=== PATIENT | male | born 1970 | race Caucasian/White ===

== ENCOUNTER 2020-12-16 12:23 | Emergency (ER) | payer MEDICAID, OTHER, SELFPAY ==
--- NOTE | ~2020-12-16 | XR_ITS ---
EXAMINATION: XR CHEST CLINICAL INFORMATION: Pneumonia COMPARISON: 05/05/2007 TECHNIQUE: Frontal view of the chest was obtained. FINDINGS: Focal opacity at the left midlung measures 0.9 cm, overlapping with posterior right eighth rib and anterior third rib. Heart size is normal. No acute osseous abnormality. XR/XR chest 1V IMPRESSION: There is a 0.9 cm opacity within the left midlung, possibly representing summation artifact but nonspecific and an underlying pulmonary nodule/mass cannot be excluded. When clinically appropriate, consider follow-up with chest CT for further assessment.
[2020-12-16 12:30] VITALS: BP 135/76; PULSE 94; RESP 18; TEMP 36.8; O2SAT 98; BMI 28.6
--- NOTE | 2020-12-16 13:17 | ED_ITS ---
HPI - URI/Sore Throat General Chief Complaint: Upper Respiratory Symptoms Stated Complaint: chills, fever, body ache, headache Time Seen by Provider: 12/16/20 12:46 Source: patient Mode of arrival: ambulatory Limitations: no limitations History of Present Illness HPI Narrative: Patient presents to ED for dry cough, body aches, fever, chills, and headache for the past 2 days. Patient denies any shortness of breath. Patient unaware of any recent COVID exposure. Patient is fully vaccinated against COVID. Patient received 2 moderna doses. Intepreter used. Related Data Allergies Allergy/AdvReac Type Severity Reaction Status Date / Time No Known Allergies Allergy Verified 12/16/20 12:30 Review of Systems Review of Systems: Yes all other systems are reviewed and are negative Constitutional: Constitutional: Reports as per HPI, Reports no additional constitutional complaints, Reports body ache(s), Reports chills, Reports fever(s) and Reports headache(s) Eyes: Eyes: Reports as per HPI and Reports no additional eye complaints ENT: Reports system reviewed and no additional complaints, except as documented, Reports as per HPI and Reports headache(s) Cardiovascular: Cardiovascular: Reports as per HPI and Reports no additional cardiovascular complaints Respiratory: Respiratory: Reports as per HPI, Reports no additional respiratory complaints and Reports cough Gastrointestinal: Gastrointestinal: Reports as per HPI and Reports no additional gastrointestinal complaints Genitourinary: Genitourinary: Reports no additional male genitourinary complaints and Reports as per HPI Musculoskeletal: Musculoskeletal: Reports no additional musculoskeletal complaints and Reports as per HPI Neurologic: Reports system reviewed and no additional complaints, except as documented, Reports as per HPI and Reports headache(s) Psychiatric: Psychiatric: Reports no additional psychiatric complaints and Reports as per HPI [facility] Past Medical History Medical History (Updated 12/16/20 @ 14:59 by SERA Ty) No pertinent past medical history Social History Social History Advance Directives: No Advance Directives Information Provided: Yes Physical Exam Vital Signs: Vital Signs: Last Vital Signs Temp 98.3 F 12/16/20 12:30 Pulse 94 12/16/20 12:30 Resp 18 12/16/20 12:30 BP 135/76 12/16/20 12:30 Pulse Ox 98 12/16/20 12:30 Body Mass Index 28.6 Const: General: cooperative, healthy appearing, comfortable, no acute distress, well developed, alert, awake and Physically active Orientation/consciousness: patient oriented x3 HENMT: Head: Yes normal to inspection, Yes No palpable skull fracture present, Yes normocephalic, Yes atraumatic and No abrasion Throat: Yes posterior oropharynx normal, Yes tonsils normal and Yes uvula midline Eyes: General: appearance normal, both eyes and all related structures Neck: Neck: Yes normal visual inspection, Yes full ROM, Yes no lymphadenopathy, Yes no meningeal signs, Yes trachea midline, Yes supple and No tender Chest: Chest palpation & inspection: normal inspection of the chest and normal palpation of entire chest wall Resp: Effort & Inspection: normal respiratory effort and able to speak in complete sentences Auscultation: clear to auscultation bilaterally Cardio: Jugular venous distension: no JVD Heart sounds: S1 normal heart sound present and S2 normal heart sound present GI: Inspection: Yes normal to inspection and No abdominal wall ecchymosis Palpation (GI): Soft to palpation, not firm, nontender and no guarding : General: No CVA tenderness and Yes no CVA tenderness Back/Spine/Pelvis: Back: no CVA tenderness, No CVA tenderness and No back tenderness Skin: General skin exam: no rashes or lesions noted and elasticity normal Neuro: General: patient oriented x3, no meningeal signs and CN's II-XI intact bilaterally Extrem: General: Yes normal to inspection and Yes full ROM Psych: Appearance: grossly normal, well kempt and not disheveled Course Course Course Narrative: Patient will have COVID swab and chest x-ray ordered. Reevaluation(s) Reevaluation #1: Patient's COVID swab and chest x-ray came back normal. Patient is safe for discharge. Patient is not in distress. Patient was informed of possible lung mass on chest xray and needs follow up with PCP. Time: 14:57 MDM - URI/Sore Throat MDM Narrative Medical decision making narrative: Viral syndrome. UR Lab Data Labs: Lab Results 12/16/20 Range/Units 14:16 COVID-19 ([facility]) Negative (Negative) COVID-19 Clin Com See Note Discharge Plan Discharge Clinical Impression: Upper respiratory infection Patient Disposition: Home, Self-Care Instructions: Upper Respiratory Infection (ED), Viral Syndrome (ED) Additional Instructions: Regrese al servicio de urgencias de inmediato si tiene dolor en el pecho, dif icultad para respirar, debilidad, mareos, dolor abdominal, tos con roshni, disuria, hematuria, dolor en el costado, roshni en las heces, dolor en la pantorrilla, hinchaz?n de las piernas o cualquier otro s?ntoma que le preocupe. Murdock hisopo COVID y la radiograf?a de t?rax resultaron normales. Tawny un seguimiento con murdock proveedor de atenci?n primaria. Stand Alone Forms: Work/School Release Print Language: Slovenian
[2020-12-16 14:42] LABS: COVID-19 Test Negative (Negative); IDNOW Serial# 9DD0AD1C
[2020-12-16 16:00] VITALS: BP 132/64; PULSE 74; RESP 16; TEMP 36.7; O2SAT 99
== END 2020-12-16 16:52 | disposition home or self-care (01) ==
PROVIDERS: Emergency Provider Emergency Medicine Emergency Medical Services; PCP Internal Medicine
DX: J06.9 Acute upper respiratory infection, unspecified (principal); R50.9 Fever, unspecified; M79.10 Myalgia, unspecified site; R51.9 Headache, unspecified; Z20.822 Contact with and (suspected) exposure to COVID-19
CPT/HCPCS: 36415; 71045; 87635; 99283

== ENCOUNTER 2021-01-28 12:37 | Outpatient (REF) | payer MEDICAID, OTHER, SELFPAY ==
--- NOTE | ~2021-01-28 | CT_ITS ---
EXAMINATION: CT CHEST WITHOUT CONTRAST CLINICAL INFORMATION: Question pulmonary nodule. Chest x-ray COMPARISON: Previous chest x-ray November 2020 TECHNIQUE: Multidetector volumetric CT imaging of the chest was done. Axial MIP volume rendering provided. Sagittal and coronal reformatted images were obtained. This CT examination was performed using dose optimization techniques as appropriate, variously including the following: *Automated exposure control *Adjustment of mA and/or kV according to patient size (this includes techniques or standardized protocols for targeted exams where dose is matched to indication/reason for exam; i.e. 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 There is a 3 mm calcified left upper lobe nodule axial image 166 series 7. The lungs are otherwise clear. MEDIASTINUM: There are small mediastinal lymph nodes. The mediastinum is otherwise normal. PLEURA: There is no pleural effusion. No pleural mass or thickening. AXILLA: No lymphadenopathy. UPPER ABDOMEN: There is a stone in the upper pole of the right kidney. This is only partially visualized and measures at least 5 mm. OSSEOUS STRUCTURES: Unremarkable. CT/CT chest wo con IMPRESSION: Biapical pleural parenchymal scarring. 3 mm calcified left upper lobe nodule probably representing a calcified granuloma. No other pulmonary nodule seen. Right renal stone. According to the UPDATED 2017 Fleischner Society recommendations, the advised follow-up imaging for less than 6 mm nodule: Low risk, no chest CT follow-up and high risk, optional chest CT follow-up in one year could be considered.
== END 2021-01-28 12:38 | disposition home or self-care (01) ==
LOC: HO.CT 12:37
PROVIDERS: Visit Provider Internal Medicine
DX: R91.1 Solitary pulmonary nodule (principal)
CPT/HCPCS: 71250

== ENCOUNTER 2022-06-12 15:42 | Emergency (ER) | payer MEDICAID, OTHER, SELFPAY ==
--- NOTE | ~2022-06-12 | XR_ITS ---
EXAMINATION: XR ANKLE LEFT XR HIP LEFT WITH PELVIS XR THORACIC SPINE XR LUMBAR SPINE CLINICAL INFORMATION: Pain COMPARISON: Radiographs of left hip, foot and ankle from 03/15/2019. Chest radiograph from 12/16/2020. TECHNIQUE: Thoracic spine, AP and lateral views Lumbar spine, 3 views Pelvis AP view and left hip, 2 views Left ankle, 3 views FINDINGS: Thoracic spine: Thoracic vertebra have normal height and alignment. Small anterior vertebral osteophytes are present in the upper thoracic spine. Mild spondylosis of the visualized cervical spine. The anterior vertebral osteophytes are most pronounced at the C6-C7 level of the visualized cervical spine. The disc spaces are generally well-preserved. No endplate erosions. No fracture, subluxation or focal soft tissue swelling. No focal lytic or osteoblastic lesion. Lumbar spine: There are 5 segmented vertebra of the lumbar spine. The vertebral body heights and alignment are normal. Multilevel vertebral osteophyte formation of the mildly degenerated spine. There is mild narrowing of disc space at L1-L2. Otherwise, the intervertebral disc heights are well-preserved. Sacrum and sacroiliac joints are normal. No focal lytic or osteoblastic lesion. Bilateral renal stones are present. The largest stone of the upper pole of the right kidney is 0.6 cm. Bowel gas pattern is normal. Pelvis and left hip: No acute findings compared to 03/15/2019. Again noted is minimal osseous spurring of the superolateral acetabulum the left hip. The hip joint spaces are maintained. No evidence of femoral fracture or osteonecrosis. The soft tissues are unremarkable. Left ankle: Alignment is normal. The talar dome is well-positioned within the intact ankle mortise. Ankle joint space and syndesmotic space are normal. No ankle joint effusion or focal soft tissue swelling. There is an enthesophyte of the Achilles insertion onto the calcaneal tuberosity. XR/XR thoracic spine 2V IMPRESSION: * No acute radiographic abnormalities in the examined spine, pelvis, hip or ankle. * No fracture or malalignment of the thoracic or lumbar spine. Overall, there is mild multilevel discovertebral degenerative change of the visualized cervical, thoracic and lumbar spine. * Bilateral renal stones are present, largest in the right upper pole measuring up to 0.6 cm.
[2022-06-12 15:51] VITALS: BP 128/90; PULSE 88; RESP 18; TEMP 36.2; O2SAT 96; BMI 26.4
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
== END 2022-06-12 19:22 | disposition home or self-care (01) ==
PROVIDERS: Emergency Provider Emergency Medicine; PCP Internal Medicine
DX: M54.16 Radiculopathy, lumbar region (principal); S39.012D Strain of muscle, fascia and tendon of lower back, subsequent encounter; V49.9XXD Car occupant (driver) (passenger) injured in unspecified traffic accident, subsequent encounter; M25.572 Pain in left ankle and joints of left foot
CPT/HCPCS: 72070; 72100; 73502; 73600; 99282; 99283

== ENCOUNTER 2022-09-10 12:25 | Emergency (ER) | payer MEDICAID, OTHER, SELFPAY ==
--- NOTE | ~2022-09-10 | CT_ITS ---
EXAMINATION: CT ABDOMEN AND PELVIS WITHOUT CONTRAST CLINICAL INFORMATION: Right lower quadrant and CVA pain COMPARISON: Previous CT of the abdomen and pelvis February 2019 TECHNIQUE: Multidetector volumetric imaging was performed from the superior aspect of the liver through the pubic symphysis. Sagittal and coronal reformatted images were obtained on the technologist's workstation. This CT examination was performed using dose optimization techniques as appropriate, variously including the following: *Automated exposure control *Adjustment of mA and/or kV according to patient size (this includes techniques or standardized protocols for targeted exams where dose is matched to indication/reason for exam; i.e. extremities or head) *Use of iterative reconstruction technique DLP: 482 mGy-cm FINDINGS: LUNG BASES: The visualized lung bases are unremarkable. LIVER, GALLBLADDER, AND BILIARY TREE: The liver is normal in size, shape, and attenuation. No focal hepatic lesion or biliary ductal dilatation is present. The gallbladder is unremarkable with no evidence of radiopaque gallstones, gallbladder wall thickening, or obvious pericholecystic inflammatory changes. PANCREAS: Unremarkable. SPLEEN: Unremarkable. ADRENAL GLANDS: Unremarkable. KIDNEYS AND URETERS: There is mild right hydronephrosis and ureteral dilatation from a 3 mm right distal ureteral stone. There are multiple right renal stones, largest measuring 6 mm in the upper pole. There are 2 small left renal stones measuring 2 to 3 mm in the midpole. No left hydronephrosis. BLADDER: Unremarkable. GASTROINTESTINAL TRACT: The small and large bowel are unremarkable. The appendix is unremarkable. ABDOMINAL WALL: No significant hernia is appreciated. LYMPH NODES: Normal. VASCULAR: Unremarkable. PELVIC VISCERA: Unremarkable. OSSEOUS STRUCTURES: Unremarkable. CT/CT abdomen pelvis wo IV con IMPRESSION: Mild right hydronephrosis and ureteral dilatation from a 3 cm right distal ureteral stone. Bilateral renal stones, right greater than left. Fleischner guidelines were followed.
[2022-09-10 12:49] VITALS: BP 149/82; PULSE 59; RESP 18; TEMP 36.4; O2SAT 97; BMI 27.1
--- NOTE | 2022-09-10 13:03 | ED.ABDPAIN ---
HPI - Abdominal Pain General Chief Complaint: Abdominal Pain Stated Complaint: ? 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 Three days of right lower quadrant abdominal pain that has been intermittent for the past 3 days, pain described as moderate 5/10 when he has it, pain is relieved by aspirin, no dysuria, no frequency urination, no blood in the urine, no dark urine. Had normal bowel movement last bowel movement was yesterday passing flatus. Normal appetite, no anorexia, no fever, no chills. Patient declined any past surgical history. Related Data Previous Rx's Medication Instructions Recorded oxycodone 5 mg tablet 5 mg PO Q8H PRN pain #8 tabs 09/10/22 prednisone 20 mg tablet 20 mg PO BID #10 tabs 09/10/22 tamsulosin 0.4 mg capsule (Flomax) 0.4 mg PO BEDTIME #10 caps 09/10/22 Allergies Allergy/AdvReac Type Severity Reaction Status Date / Time No Known Allergies Allergy Verified 06/12/22 15:55 Review of Systems Review of Systems All other systems are reviewed and are negative Constitutional: Reports as per HPI and Reports no additional constitutional complaints Eyes: Reports as per HPI and Reports no additional eye complaints Reports system reviewed and no additional complaints, except as documented Cardiovascular: Reports as per HPI and Reports no additional cardiovascular complaints Respiratory: Reports as per HPI and Reports no additional respiratory complaints Gastrointestinal: Reports as per HPI and Reports no additional gastrointestinal complaints Genitourinary: Reports no additional female genitourinary complaints Musculoskeletal: Reports no additional musculoskeletal complaints Skin/Breast: Reports system reviewed and no additional complaints, except as docu Psychiatric: Reports no additional psychiatric complaints Endocrine: Reports no additional endocrine complaints Hematologic/Lymphatic: Reports no additional hematologic/lymphatic complaints Allergic/Immunologic: Reports no additional allergic/immunologic complaints Reports system reviewed and no additional complaints, except as documented and Reports Abnormal speech present [facility] Past Medical History Medical History No pertinent past medical history Social History Social History Advance Directives: No Advance Directives Information Provided: Yes Physical Exam ED Vital Signs: Vital Signs - 24 hr 09/10/22 12:49 Temperature 97.6 F Pulse Rate 59 Respiratory Rate 18 Blood Pressure 149/82 H Pulse Oximetry 97 Oxygen Delivery Method Room Air BMI result Body Mass Index 27.1 vital signs have been reviewed as appeared to be correct. Blood pressure normal. Heart rate normal. Respiration rate normal. Temperature normal. Oxygen saturation normal. Appearance: Alert. Oriented X3. No acute distress. Head: Normal external exam. Normocephalic. Atraumatic. No Perry signs noted. No raccoon eyes noted Eyes: PERRLA. EOMI. Conjunctiva and sclera normal. Eyelids normal. ENT: TM's Normal. Pharynx normal. Uvula midline. Moist mucous membranes. No trismus noted. No drooling noted. No muffled voice noted. Neck: Normal inspection. Neck supple. FROM. No adenopathy. Thyroid Normal. No meningeal signs. No neck mass noted. CVS: Normal heart rate and rhythm. Heart sound normal. No murmurs noted. Pulses normal throughout. Respiratory: No respiratory distress. Painless inspiration. Breath sounds normal. No wheezes/rales/rhonchi noted. Chest nontender. No accessory muscle usage noted or decreased air movement noted. Abdomen: Soft, right lower quadrant tenderness, no rebound tenderness, no guarding.. Bowel sounds normal in all 4 quadrants. No distention noted. No organomegaly noted. No visible injury noted. Back: No CVA tenderness. Full range of motion noted. Skin: Skin warm and dry. Normal skin color. Normal skin turgor. No rashes/lesions/lacerations noted. Extremities: No lower extremity edema. Extremities exhibit normal range of motion. Extremities nontender. Neuro: Oriented X 3. Cranial nerve exam: II-XII are grossly intact No motor deficit. No sensory deficit. Reflexes normal. Course Course Course Narrative: RME: 52yo M w/ PMHx renal stone, HLD, sent in from PCP for intermittent right sided abdominal pain which became more constant w/nausea x3 days. denies fever, urinary sx abdomen soft & nontender in triage, patient standing/moving around Labs, UA, CTAP ordered Full HPI, ROS and PE to be performed by primary ED provider. Medical Decision Making Medical Decision Making MDM Narrative: 52-year-old male came in with right lower quadrant abdominal pain for the past 3 days on and off, physical exam, CT abdomen and pelvis are consistent with 3 mm obstructive right ureteric stone with hydronephrosis. pain in the emergency department under good control, will discharge the patient to follow up with Urology, analgesia, prednisone, Flomax. Differential Diagnosis Differential Diagnoses: The differential diagnosis associated with the presentation includes ( Colitis, appendicitis, diverticulitis, kidney stone, pyelonephritis, UTI, severe electrolyte abnormalities, severe anemia.) Admission/Observation Consideration of admission/observation: Escalation of care including admission/observation considered Lab Data [facility] Lab Attestation statement: I reviewed the patient's lab results. 09/10/22 13:14 09/10/22 13:14 Labs: Lab Results 09/10/22 09/10/22 Range/Units 13:14 13:14 WBC 5.7 (4.8-10.8) X10*3/uL RBC 5.00 (4.60-5.80) X10*6/uL Hgb 14.5 (14.0-18.0) g/dl Hct 43.3 (42.0-52.0) % MCV 86.6 (80.0-98.0) fL MCH 29.0 (27.0-33.0) pg MCHC 33.5 (31.0-36.0) g/dl RDW 13.2 (11.0-16.0) % Plt Count 255 (160-400) X10*3/uL MPV 10.0 (9.4-12.4) fL Immature Gran % (Auto) 0.2 (0.0-0.4) % Neut % (Auto) 68.9 (45-73) % Lymph % (Auto) 22.5 (20-40) % [place] % (Auto) 5.6 (2-11) % Eos % (Auto) 2.1 (0-4) % Baso % (Auto) 0.7 (0-2) % Lymph # (Auto) 1.3 (1.2-4.9) X10*3/uL [place] # (Auto) 0.3 (0.1-1.2) X10*3/uL Eos # (Auto) 0.1 (0.0-0.4) X10*3/uL Baso # (Auto) 0.0 (0.0-0.2) X10*3/uL Abs Immat Gran (auto) 0.01 (0.00-0.03) X10*3/uL Absolute Neuts (auto) 3.9 (2.0-8.3) x10*3/uL Absolute Nucleated RBC 0.000 (0.0-0.012) X10*3/uL Nucleated RBC % (auto) 0.0 (0.0-0.2) /100WBC Sodium 142 (135-145) mmol/L Potassium 4.5 (3.3-5.1) mmol/L Chloride 110 H (96-108) mmol/L Carbon Dioxide 26 (22-29) mmol/L Anion Gap 11 L (12-20) BUN 21 H (9-16) mg/dL Creatinine 1.13 (0.5-1.4) mg/dL Estim Creat Clear Calc 72.3 Estimated GFR > 60 Random Glucose 113 (60-115) mg/dL Calcium 9.9 (8.4-10.2) mg/dL Magnesium 1.9 (1.6-2.6) mg/dL Total Bilirubin 0.7 (0.0-1.0) mg/dL Direct Bilirubin 0.2 (0.0-0.5) mg/dL AST 22 (5-37) U/L ALT 18 (0-40) U/L Alkaline Phosphatase 77 (39-117) U/L Total Protein 7.4 (6.5-8.0) g/dL Albumin 4.4 (3.5-5.0) g/dL Lipase 14 (8-78) U/L Independent Interpretation I performed an independent interpretation of an: CT Scan ( Abdomen and pelvis: 3 mm distal right ureteric stone with hydronephrosis.) Radiology Impression Discussion of test interpretation with radiology: I have reviewed the radiologist's reading. Discharge Plan Discharge Clinical Impression: Calculus of kidney Patient Disposition: Home, Self-Care Instructions: Kidney Stones (ED) Prescriptions: New oxycodone 5 mg tablet 5 mg PO Q8H PRN (Reason: pain) Qty: 8 0RF Rx Instructions: Partial Fill upon patient request. tamsulosin [Flomax] 0.4 mg capsule 0.4 mg PO BEDTIME Qty: 10 0RF prednisone 20 mg tablet 20 mg PO BID Qty: 10 0RF Referrals: Jesus Manuel Welsh MD [Physician] - Dhaval Woods MD [Primary Care Provider] -
[2022-09-10 13:18] LABS: MANUAL DIFF FLAG NO
[2022-09-10 13:21] LABS: Basophils Percent Auto 0.7 % (0-2); Eosinophils Absolute Auto 0.1 X10*3/uL (0.0-0.4); Eosinophils Percent Auto 2.1 % (0-4); Hematocrit 43.3 % (42.0-52.0); Hemoglobin 14.5 g/dl (14.0-18.0); Imm Gran Abs Auto 0.01 X10*3/uL (0.00-0.03); Imm Gran Pct Auto 0.2 % (0.0-0.4); Lymphocytes Absolute Auto 1.3 X10*3/uL (1.2-4.9); Lymphocytes Percent Auto 22.5 % (20-40); Mean Corpuscular HGB Conc 33.5 g/dl (31.0-36.0); Mean Corpuscular Volume 86.6 fL (80.0-98.0); Monocytes Absolute Auto 0.3 X10*3/uL (0.1-1.2); Monocytes Percent Auto 5.6 % (2-11); Neutrophils Absolute Auto 3.9 x10*3/uL (2.0-8.3); Neutrophils Percent Auto 68.9 % (45-73); Platelet Count 255 X10*3/uL (160-400); Red Cell Distribution Width 13.2 % (11.0-16.0); White Blood Count 5.7 X10*3/uL (4.8-10.8)
[2022-09-10 13:51] LABS: Alanine Aminotransferase 18 U/L (0-40); Albumin Level 4.4 g/dL (3.5-5.0); Alkaline Phosphatase 77 U/L (39-117); Anion Gap 11 (12-20); Aspartate Amino Transferase 22 U/L (5-37); Bilirubin Direct 0.2 mg/dL (0.0-0.5); Bilirubin Total 0.7 mg/dL (0.0-1.0); Blood Urea Nitrogen 21 mg/dL (9-16); Calcium 9.9 mg/dL (8.4-10.2); Carbon Dioxide 26 mmol/L (22-29); Chloride 110 mmol/L (96-108); Creatinine Clr Calc Pharmacy 72.3; Estimated Glomerular Filt Rate > 60; Glucose Random 113 mg/dL (60-115); Lipase 14 U/L (8-78); Magnesium 1.9 mg/dL (1.6-2.6); Potassium 4.5 mmol/L (3.3-5.1); Sodium 142 mmol/L (135-145); Total Protein 7.4 g/dL (6.5-8.0)
[2022-09-10 17:15] VITALS: BP 115/71; PULSE 57; RESP 16; TEMP 36.4
== END 2022-09-10 17:20 | disposition home or self-care (01) ==
PROVIDERS: Physician Assistant; Emergency Provider Emergency Medicine; PCP Internal Medicine
DX: N13.2 Hydronephrosis with renal and ureteral calculous obstruction (principal)
CPT/HCPCS: 36415; 74176; 80048; 80076; 83690; 83735; 85025; 99284

== ENCOUNTER 2022-09-15 15:44 | Emergency (ER) | payer MEDICAID, OTHER, SELFPAY ==
--- NOTE | ~2022-09-15 | US_ITS ---
EXAMINATION: US RETROPERITONEAL LIMITED (RENAL ONLY) CLINICAL INFORMATION: Right ureteral stone with question of hydronephrosis. COMPARISON: CT abdomen pelvis 09/10/2022 TECHNIQUE: Ultrasound of the kidneys was performed FINDINGS: RIGHT KIDNEY: 10.7 x 4.1 x 4.8 cm (SAG x AP x TRV). The kidney is normal in size, contour, and echogenicity. Renal cortical thickness is normal. 2 calculi are present in the right kidney with a 5 mm calculus in the mid kidney and a 3 mm calculus at the lower pole. More calculi were visualized on the recent CT scan. No focal parenchymal lesions. There has been resolution of the right-sided hydronephrosis and dilatation of the ureter secondary to a previously seen obstructing distal ureteral calculus which is presumably no longer present. At this time there is no hydronephrosis. LEFT KIDNEY: 10.8 x 4.9 x 5.3 cm (SAG x AP x TRV). The kidney is normal in size, contour, and echogenicity. Renal cortical thickness is normal. No calculi or focal parenchymal lesions. The small calculi seen on the recent CT scan is not identified on the current study. No hydronephrosis. Incidental note made of an echogenic liver consistent with hepatic steatosis. US/US renal BI IMPRESSION: 1. Nonobstructing right renal calculi. 2. Hepatic steatosis.
[2022-09-15 15:57] VITALS: BP 116/73; PULSE 62; RESP 18; TEMP 36.4; O2SAT 99; BMI 29.1
--- NOTE | 2022-09-15 15:58 | ED.ABDPAIN ---
HPI - Abdominal Pain General Chief Complaint: Abdominal Pain Stated Complaint: kidney stone? pain/blood Time Seen by Provider: 09/15/22 16:58 Source: patient Mode of arrival: ambulatory Limitations: language barrier History of Present Illness HPI narrative: 52 y/o male who presents emergency department for evaluation of hematuria and left lower quadrant pain. Patient was seen in the emergency department on 09/10/2022 with the symptoms and was diagnosed with a right distal 3 mm ureteral stone with mild right hydronephrosis. Patient had multiple right-sided renal stones with the largest measuring 6 mm. Patient states that his pain has improved from 8 or a 9/10 to 5/10 he states that he has persistent hematuria with no dysuria. He does have some pressure when he tries to urinate. Patient was concerned about his persistent pain is hematuria so she return to the emergency department for evaluation. He denied fever, chills. He has had nausea with no vomiting. He denied diarrhea. Related Data Previous Rx's Medication Instructions Recorded oxycodone 5 mg tablet 5 mg PO Q8H PRN pain #8 tabs 09/10/22 prednisone 20 mg tablet 20 mg PO BID #10 tabs 09/10/22 tamsulosin 0.4 mg capsule (Flomax) 0.4 mg PO BEDTIME #10 caps 09/10/22 oxycodone 5 mg tablet 5 mg PO Q6H PRN pain #14 tabs 09/15/22 Allergies Allergy/AdvReac Type Severity Reaction Status Date / Time No Known Allergies Allergy Verified 06/12/22 15:55 Review of Systems Review of Systems Yes all other systems are reviewed and are negative PMFSH Past Medical History Medical History No pertinent past medical history Social History Social History Smoked in Last 30 Days: No Use of substances other than those prescribed or required for medical reasons: No Advance Directives: No Advance Directives Information Provided: No Physical Exam ED Vital Signs: Vital Signs - 24 hr 09/15/22 15:57 09/15/22 17:13 09/15/22 17:29 Temperature 97.6 F 98.2 F 98.5 F Pulse Rate 62 Respiratory Rate 18 14 12 Blood Pressure 116/73 123/66 Pulse Oximetry 99 98 98 Oxygen Delivery Method Room Air Room Air Room Air 09/15/22 20:00 09/15/22 22:00 Temperature 98.1 F 98.3 F Pulse Rate 56 51 Respiratory Rate 16 16 Blood Pressure 114/66 115/63 Pulse Oximetry 98 98 Oxygen Delivery Method Room Air Room Air BMI result Body Mass Index 29.1 Const General: cooperative and no acute distress Orientation/consciousness: oriented to person and oriented to place Limitations: no limitations HENMT Head: Yes normal to inspection, Yes normocephalic and Yes atraumatic Ears: external ears normal General nose exam: Normal external nose present Face and sinus: Yes normal facial exam Mouth: Normal oral and palatal mucosa present Throat: Yes posterior oropharynx normal Eyes General: appearance normal, both eyes and all related structures Pupils: Equal, round and reactive pupils present Neck Neck: Yes normal visual inspection, Yes no lymphadenopathy, Yes trachea midline and Yes supple Chest Chest palpation & inspection: normal inspection of the chest and normal palpation of entire chest wall Resp Effort & Inspection: normal respiratory effort and able to speak in complete sentences Auscultation: clear to auscultation bilaterally Cardio Rate: regular rate Rhythm: regular rhythm Heart sounds: S1 normal heart sound present, S2 normal heart sound present and no murmurs GI Other: Patient's abdomen does not appear to be distended, has normoactive bowel sounds, has some mild right lower quadrant tenderness. No rebound, no voluntary or involuntary guarding Other: Mild right CVA tenderness Skin General skin exam: no rashes or lesions noted Neuro General: oriented to person and oriented to place Cranial nerves: Yes CN's II-XII intact bilaterally and Yes Equal, round and reactive pupils present Cognition (Neuro): normal cognition Motor exam (neuro): 5/5 motor strength present throughout Extrem General: Yes normal to inspection Psych Appearance: grossly normal Speech and movement: Normal speech and movement present Affect: normal affect Attitude: cooperative Thought process: Normal thought process present Thought content: Normal thought content present Course Course Course Narrative: RME - 52 yo Occitan speaking male with 3mm distal right ureteral kidney stone diagnosed here on 09/10 presents to the ER for evaluation of new onset hematuria and ongoing RLQ pain, although less than when he 1st came in. Plan: repeat labs and UA. discuss w/ urology, hold off on repeat imaging or U/S for now. patient appears very comfortable. Medical Decision Making Medical Decision Making [facility] Narrative: 52-year-old male who was diagnosed with a right 3 mm right distal ureteral stone on 09/10/2022 you presents emergency department for evaluation of persistent right flank and right lower quadrant pain (5/10) and hematuria with pressure with urinary but no dysuria. Patient had persistent nausea but no vomiting. Physical examination did reveal [id number] right lower quadrant tenderness and mild right CVA tenderness. Following tests were ordered: CBC, CMP, urinalysis, right renal ultrasound. 2213: Laboratory evaluation did reveal greater than 20 RBCs but no WBCs and no bacteria which is consistent with hematuria. Patient's kidney function was normal, CBC was normal. Ultrasound revealed resolution of the right sided hydronephrosis and dilatation of the ureter secondary to previously seen obstructing distal ureteral calculi which is presumably no longer present according the radiologist. The patient was given a another prescription for oxycodone for his pain. He is advised to finish his other medications as prescribed He was given a work note He was advised to follow-up with the urologist further evaluation Differential Diagnosis Differential diagnosis includes was not limited to right ureteral stone, right kidney stone, bladder stone, urinary tract infection Admission/Observation Consideration of admission/observation: Escalation of care including admission/observation considered Lab Data [facility] Lab Attestation statement: I reviewed the patient's lab results. My independent interpretation patient's laboratory evaluation is as follows: Glucose elevated 153. Urinalysis positive for blood. Microscopic revealed greater than 20 RBCs, 0 WBCs and 0 bacteria. 09/15/22 16:40 09/15/22 16:40 Labs: Lab Results 09/15/22 09/15/22 09/15/22 Range/Units 16:40 16:40 17:03 WBC 8.0 (4.8-10.8) X10*3/uL RBC 4.76 (4.60-5.80) X10*6/uL Hgb 13.5 L (14.0-18.0) g/dl Hct 40.5 L (42.0-52.0) % MCV 85.1 (80.0-98.0) fL MCH 28.4 (27.0-33.0) pg MCHC 33.3 (31.0-36.0) g/dl RDW 13.2 (11.0-16.0) % Plt Count 255 (160-400) X10*3/uL MPV 10.2 (9.4-12.4) fL Immature Gran % (Auto) 0.5 H (0.0-0.4) % Neut % (Auto) 76.4 H (45-73) % Lymph % (Auto) 17.5 L (20-40) % [place] % (Auto) 4.7 (2-11) % Eos % (Auto) 0.5 (0-4) % Baso % (Auto) 0.4 (0-2) % Lymph # (Auto) 1.4 (1.2-4.9) X10*3/uL [place] # (Auto) 0.4 (0.1-1.2) X10*3/uL Eos # (Auto) 0.0 (0.0-0.4) X10*3/uL Baso # (Auto) 0.0 (0.0-0.2) X10*3/uL Abs Immat Gran (auto) 0.04 H (0.00-0.03) X10*3/uL Absolute Neuts (auto) 6.1 (2.0-8.3) x10*3/uL Absolute Nucleated RBC 0.000 (0.0-0.012) X10*3/uL Nucleated RBC % (auto) 0.0 (0.0-0.2) /100WBC Sodium 140 (135-145) mmol/L Potassium 3.4 D (3.3-5.1) mmol/L Chloride 105 (96-108) mmol/L Carbon Dioxide 26 (22-29) mmol/L Anion Gap 12 (12-20) BUN 19 H (9-16) mg/dL Creatinine 1.24 (0.5-1.4) mg/dL Estim Creat Clear Calc 73.1 Estimated GFR > 60 Random Glucose 153 H (60-115) mg/dL Calcium 9.0 D (8.4-10.2) mg/dL Magnesium 1.8 (1.6-2.6) mg/dL Total Bilirubin 0.6 (0.0-1.0) mg/dL Direct Bilirubin 0.1 (0.0-0.5) mg/dL AST 19 (5-37) U/L ALT 22 (0-40) U/L Alkaline Phosphatase 75 (39-117) U/L Total Protein 6.7 (6.5-8.0) g/dL Albumin 3.9 (3.5-5.0) g/dL Urine Color Yellow Urine Appearance Clear Urine pH 6.5 (5.0-9.0) Ur Specific [place] 1.015 (1.005-1.025) Urine Protein Trace (Neg-Trace) mg/dL Urine Glucose (UA) Negative (Negative) mg/dL Urine Ketones Negative (Negative) mg/dL Urine Blood Large (3+) H (Negative) Urine Nitrite Negative (Negative) Ur Leukocyte Esterase Trace H (Negative) Urine RBC >20 H (0-2) /HPF Urine WBC 0-5 (0-5) /HPF Ur Squamous Epith Cells 0-2 (0-2) /HPF Urine Bacteria None Seen (None Seen) Hyaline Casts 0-2 (0-2) /LPF Radiology Impression Discussion of test interpretation with radiology: I have reviewed the radiologist's reading. Radiologist Impression: US RETROPERITONEAL LIMITED (RENAL ONLY) FINDINGS: RIGHT KIDNEY: 10.7 x 4.1 x 4.8 cm (SAG x AP x TRV). The kidney is normal in size, contour, and echogenicity. Renal cortical thickness is normal. 2 calculi are present in the right kidney with a 5 mm calculus in the mid kidney and a 3 mm calculus at the lower pole. More calculi were visualized on the recent CT scan. No focal parenchymal lesions. There has been resolution of the right-sided hydronephrosis and dilatation of the ureter secondary to a previously seen obstructing distal ureteral calculus which is presumably no longer present. At this time there is no hydronephrosis. LEFT KIDNEY: 10.8 x 4.9 x 5.3 cm (SAG x AP x TRV). The kidney is normal in size, contour, and echogenicity. Renal cortical thickness is normal. No calculi or focal parenchymal lesions. The small calculi seen on the recent CT scan is not identified on the current study. No hydronephrosis. Incidental note made of an echogenic liver consistent with hepatic steatosis. US/US renal BI IMPRESSION: 1. Nonobstructing right renal calculi. 2. Hepatic steatosis. Dictated By:Julián Zaidi MD Independent Historian Clinical information obtained from an independent historian. History obtained from or confirmed by: Spouse External Record Review External record reviewed: Other ([place] prescription are monitoring program-1 prescription for Percocet given in the ED at previous visit) Prescription Management I considered prescription management with: Pain Medication Discharge Plan Discharge Clinical Impression: Renal colic on right side Hematuria Qualifiers: Hematuria type: gross Qualified Code(s): R31.0 - Gross hematuria Patient Disposition: Home, Self-Care Instructions: Renal Colic (ED), Hematuria (ED) Additional Instructions: Your ultrasound demonstrated improved of your right-sided kidney swell and swelling of the right ureter suggesting that you may have passed the stone or the stone broke up in his small and your passing smaller pieces which may be causing your pain. You do have blood in your urine which do not have any infection of your urine Your kidney function is normal based on your blood work. Use the urinal to collect your urine and then strain it through to see view catch a kidney stone Take Tylenol (acetaminophen) 500 mg pills, 2 pills every 4-6 hours as needed for pain. For pain not relieved by Tylenol take oxycodone 5 mg pills, 1 pill every 4 hours as needed for pain. Do not drive or work while taking this medication since they can cause sleepiness. Oxycodone is a narcotic medication that can be addicting. If you are concerned about addiction you can ask the pharmacist for less pills or do not get this prescription filled. Follow-up with the on-call urologist Please see the work note Prescriptions: New oxycodone 5 mg tablet 5 mg PO Q6H PRN (Reason: pain) Qty: 14 0RF Rx Instructions: Patient may request partial refill; Partial Fill upon patient request. No Action oxycodone 5 mg tablet 5 mg PO Q8H PRN (Reason: pain) Qty: 8 0RF Rx Instructions: Partial Fill upon patient request. tamsulosin [Flomax] 0.4 mg capsule 0.4 mg PO BEDTIME Qty: 10 0RF prednisone 20 mg tablet 20 mg PO BID Qty: 10 0RF Referrals: Jesus Manuel Welsh MD [Physician] - 1 week Stand Alone Forms: Work/School Release
[2022-09-15 16:47] LABS: MANUAL DIFF FLAG NO
[2022-09-15 17:03] LABS: Basophils Percent Auto 0.4 % (0-2); Eosinophils Percent Auto 0.5 % (0-4); Hematocrit 40.5 % (42.0-52.0); Hemoglobin 13.5 g/dl (14.0-18.0); Imm Gran Abs Auto 0.04 X10*3/uL (0.00-0.03); Imm Gran Pct Auto 0.5 % (0.0-0.4); Lymphocytes Absolute Auto 1.4 X10*3/uL (1.2-4.9); Lymphocytes Percent Auto 17.5 % (20-40); Mean Corpuscular HGB Conc 33.3 g/dl (31.0-36.0); Mean Corpuscular Hemoglobin 28.4 pg (27.0-33.0); Mean Corpuscular Volume 85.1 fL (80.0-98.0); Mean Platelet Volume 10.2 fL (9.4-12.4); Monocytes Absolute Auto 0.4 X10*3/uL (0.1-1.2); Monocytes Percent Auto 4.7 % (2-11); Neutrophils Absolute Auto 6.1 x10*3/uL (2.0-8.3); Neutrophils Percent Auto 76.4 % (45-73); Platelet Count 255 X10*3/uL (160-400); Red Blood Count 4.76 X10*6/uL (4.60-5.80); Red Cell Distribution Width 13.2 % (11.0-16.0)
[2022-09-15 17:13] VITALS: RESP 14; TEMP 36.8; O2SAT 98; BMI 29.1
[2022-09-15 17:15] LABS: Appearance Urine Clear; Color Urine Yellow; Glucose Urine UA Negative (Negative); Leukocyte Esterase Urine Trace (Negative); Nitrite Urine Negative (Negative); PH 6.5 (5.0-9.0); Specific Gravity - Urine 1.015 (1.005-1.025); UMIC TRIGGER UACC YES; Urine Blood Large (3+) (Negative); Urine Ketones Negative (Negative); Urine Protein Trace mg/dL (Neg-Trace)
[2022-09-15 17:20] LABS: Alanine Aminotransferase 22 U/L (0-40); Albumin Level 3.9 g/dL (3.5-5.0); Alkaline Phosphatase 75 U/L (39-117); Anion Gap 12 (12-20); Aspartate Amino Transferase 19 U/L (5-37); Bilirubin Direct 0.1 mg/dL (0.0-0.5); Bilirubin Total 0.6 mg/dL (0.0-1.0); Blood Urea Nitrogen 19 mg/dL (9-16); Carbon Dioxide 26 mmol/L (22-29); Chloride 105 mmol/L (96-108); Creatinine Clr Calc Pharmacy 73.1; Estimated Glomerular Filt Rate > 60; Glucose Random 153 mg/dL (60-115); Magnesium 1.8 mg/dL (1.6-2.6); Potassium 3.4 mmol/L (3.3-5.1); Sodium 140 mmol/L (135-145); Total Protein 6.7 g/dL (6.5-8.0)
[2022-09-15 17:21] LABS: Bacteria Urine None Seen (None Seen); Hyaline Casts Urine 0-2 /LPF (0-2); RBC Urine >20 /HPF (0-2); Squamous Epithelial Cell Urine 0-2 /HPF (0-2); WBC Urine 0-5 /HPF (0-5)
[2022-09-15 17:29] VITALS: BP 123/66; RESP 12; TEMP 36.9; O2SAT 98
--- NOTE | 2022-09-15 17:30 | PC.NURSE ---
Pt ca&ox3, no signs of distress. Pt reports 5/10 rlq abdm pain. Provider and latin american studies director in with pt. wctm.
[2022-09-15 20:00] VITALS: BP 114/66; PULSE 56; RESP 16; TEMP 36.7; O2SAT 98
--- NOTE | 2022-09-15 20:22 | PC.NURSE ---
Patient use a bedside commode with assistance of this nurse, patient urinated and had a medium soft, brown bowel movement. Pericare provided to patient. Call carvajal placed within patient's reach. Patient's spouse and daughter are at bedside.
[2022-09-15 22:00] VITALS: BP 115/63; PULSE 51; RESP 16; TEMP 36.8; O2SAT 98
== END 2022-09-15 22:56 | disposition home or self-care (01) ==
PROVIDERS: Physician Assistant; Emergency Provider Emergency Medicine Emergency Medical Services; PCP Internal Medicine
DX: N23 Unspecified renal colic (principal); R31.0 Gross hematuria
CPT/HCPCS: 36415; 76775; 80048; 80076; 81001; 83735; 85025; 99284

== ENCOUNTER 2023-03-24 15:09 | Outpatient (REF) | payer MEDICAID, OTHER, SELFPAY ==
[2023-03-24 16:30] LABS: Cholesterol 214 mg/dL (<200); HDL Cholesterol 34 mg/dL (>40); LDL Cholesterol Calculated 147 mg/dL (<100); Triglycerides 167 mg/dL (<150)
[2023-03-24 16:31] LABS: Alanine Aminotransferase 29 U/L (0-40); Albumin Level 4.4 g/dL (3.5-5.0); Alkaline Phosphatase 86 U/L (39-117); Aspartate Amino Transferase 22 U/L (5-37); Bilirubin Direct 0.1 mg/dL (0.0-0.5); Bilirubin Total 0.3 mg/dL (0.0-1.0); Total Protein 7.5 g/dL (6.5-8.0)
[2023-03-24 19:08] LABS: Reflex LDLD? No
== END 2023-03-24 15:10 | disposition home or self-care (01) ==
LOC: HO.HHCL 15:09
PROVIDERS: Visit Provider Internal Medicine
DX: E78.1 Pure hyperglyceridemia (principal)
CPT/HCPCS: 36415; 80061; 80076

== ENCOUNTER 2023-04-30 14:21 | Outpatient (REF) | payer MEDICAID, OTHER, SELFPAY | END 2023-04-30 14:22 | disposition home or self-care (01) | LOC: HO.HHCX 14:21 | PROVIDERS: Visit Provider Internal Medicine | DX: Z13.89 Encounter for screening for other disorder (principal) ==

== ENCOUNTER 2023-06-10 11:32 | Outpatient (REF) | payer MEDICAID, OTHER, SELFPAY | END 2023-06-10 11:33 | disposition home or self-care (01) | LOC: HO.HHCX 11:32 | PROVIDERS: Visit Provider Internal Medicine | DX: Z13.89 Encounter for screening for other disorder (principal) ==

== ENCOUNTER 2023-06-11 10:54 | Outpatient (AMB) | payer MEDICAID, SELFPAY ==
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
[2023-06-11 11:18] VITALS: BMI 29.1
== END 2023-06-11 11:46 | disposition home or self-care (01) ==
PROVIDERS: PCP Internal Medicine; Visit Provider Physical Medicine & Rehabilitation
DX: R20.0 Anesthesia of skin (principal); M76.62 Achilles tendinitis, left leg; S93.492A Sprain of other ligament of left ankle, initial encounter
CPT/HCPCS: 99204

== ENCOUNTER → 2023-06-11 10:54 | Outpatient (BNVA) | payer MEDICAID, OTHER, SELFPAY | PROVIDERS: PCP Internal Medicine; Visit Provider Physical Medicine & Rehabilitation | DX: M76.62 Achilles tendinitis, left leg (principal); R20.0 Anesthesia of skin; S93.492A Sprain of other ligament of left ankle, initial encounter; V89.2XXA Person injured in unspecified motor-vehicle accident, traffic, initial encounter; Y93.9 Activity, unspecified; Y92.9 Unspecified place or not applicable; Y99.9 Unspecified external cause status | CPT/HCPCS: 99202 ==

== ENCOUNTER 2024-01-19 15:06 | Outpatient (REF) | payer MEDICAID, OTHER, SELFPAY ==
[2024-01-19 17:18] LABS: Alanine Aminotransferase 21 U/L (0-40); Albumin Level 4.4 g/dL (3.5-5.0); Alkaline Phosphatase 83 U/L (39-117); Anion Gap 13 (12-20); Aspartate Amino Transferase 33 U/L (5-37); Bilirubin Total 0.6 mg/dL (0.0-1.0); Blood Urea Nitrogen 13 mg/dL (9-16); Calcium 9.1 mg/dL (8.4-10.2); Carbon Dioxide 25 mmol/L (22-29); Chloride 108 mmol/L (96-108); Cholesterol 225 mg/dL (<200); Estimated Glomerular Filt Rate > 60; Glucose Random 96 mg/dL (60-115); HDL Cholesterol 40 mg/dL (>40); LDL Cholesterol Calculated 149 mg/dL (<100); Potassium 4.1 mmol/L (3.3-5.1); Sodium 142 mmol/L (135-145); Total Protein 7.3 g/dL (6.5-8.0); Triglycerides 180 mg/dL (<150)
[2024-01-19 17:25] LABS: Prostate Specific Antigen Scr 0.41 ng/mL (<0.05-4.0)
[2024-01-20 02:48] LABS: CT PCR NOT DETECTED (Not Detect.); NG PCR NOT DETECTED (Not Detect.)
[2024-01-20 09:00] LABS: HIV AB/AG Nonreactive (Nonreactive); HIV Num 1 0.09 S/CO (0.00-0.99); ~HepC Num1 0.15 S/CO (0.00-0.79); ~Hepatitis C Antibody Nonreactive (Nonreactive)
[2024-01-21 08:16] LABS: HBS Num1 23.53 mIU/mL (0-7.99); HBc Num1 0.14 S/CO (0.00-0.79); HBsAGNum1 0.34 S/CO (0.00-0.99); Hepatitis B Core Antibody Nonreactive (Nonreactive); Hepatitis B Surface Antigen Negative (Negative); ~Hepatitis B Surface Antibody REACTIVE (Nonreactive)
[2024-01-21 08:53] LABS: Syphilis Screen Nonreactive (Nonreactive)
== END 2024-01-19 15:07 | disposition home or self-care (01) ==
LOC: HO.HHCL 15:06
PROVIDERS: Visit Provider Internal Medicine
DX: Z00.00 Encounter for general adult medical examination without abnormal findings (principal); Z71.1 Person with feared health complaint in whom no diagnosis is made; E78.1 Pure hyperglyceridemia
CPT/HCPCS: 36415; 80053; 80061; 84153; 86695; 86696; 86704; 86706; 86780; 86803; 87255; 87340; 87389; 87491; 87591

== ENCOUNTER 2024-09-05 14:45 | Outpatient (REF) | payer MEDICAID, OTHER, SELFPAY ==
[2024-09-05 16:12] LABS: MANUAL DIFF FLAG NO
[2024-09-05 16:22] LABS: Basophils Percent Auto 0.6 % (0-2); Eosinophils Absolute Auto 0.1 X10*3/uL (0.0-0.4); Eosinophils Percent Auto 2.2 % (0-4); Hematocrit 40.2 % (42.0-52.0); Hemoglobin 13.4 g/dl (14.0-18.0); Imm Gran Abs Auto 0.01 X10*3/uL (0.00-0.03); Imm Gran Pct Auto 0.2 % (0.0-0.4); Lymphocytes Absolute Auto 1.9 X10*3/uL (1.2-4.9); Lymphocytes Percent Auto 30.1 % (20-40); Mean Corpuscular HGB Conc 33.3 g/dl (31.0-36.0); Mean Corpuscular Hemoglobin 28.9 pg (27.0-33.0); Mean Corpuscular Volume 86.6 fL (80.0-98.0); Mean Platelet Volume 10.3 fL (9.4-12.4); Monocytes Absolute Auto 0.5 X10*3/uL (0.1-1.2); Monocytes Percent Auto 7.8 % (2-11); Neutrophils Absolute Auto 3.8 x10*3/uL (2.0-8.3); Neutrophils Percent Auto 59.1 % (45-73); Platelet Count 265 X10*3/uL (160-400); Red Blood Count 4.64 X10*6/uL (4.60-5.80); Red Cell Distribution Width 12.8 % (11.0-16.0); White Blood Count 6.4 X10*3/uL (4.8-10.8)
--- OUTSIDE RECORDS SUMMARY | 2024-09-05 16:30 | XMS_ITS | Referral Summary ---
Author Organization [facility] Address [address] [place] [address] Care Team Providers Care Credit Portfolio Manager Name Role Phone Dhaval Woods Primary Care Provider + Allergies No known active allergies Medications diclofenac (VOLTAREN) 50 mg EC tablet Take 1 tablet (50 mg total) by mouth 2 times a day as needed (pain). 10 tablet 11/27/2022 10:45 AM EDT 11/27/2022 Active phenazopyridine (PYRIDIUM) 200 mg tablet Take 1 tablet (200 mg total) by mouth 3 times a day as needed for bladder spasms. 9 tablet 11/27/2022 10:45 AM EDT 11/27/2022 Active tamsulosin (FLOMAX) 0.4 mg capsule Take 1 capsule (0.4 mg total) by mouth daily as needed (stent pain). 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 Dustin spots 06/07/2015 Keratosis pilaris 06/07/2015 Nephrolithiasis 04/01/2009 Hematuria 04/01/2009 Social History Tobacco Use Types Packs/Day Years Used Date Smoking Tobacco: Former Smokeless Tobacco: Never Comments:Quit 30 years ago Alcohol Use Standard Drinks/Week Comments Not Currently 0 (1 standard drink = 0.6 oz pur e alcohol) quit 30 years ago Sex and Gender Information Value Date Recorded Sex Assigned at Not on file Legal Sex Male 9:08 AM EDT Gender Identity Not on file Sexual Orientation Not on file Last Filed Vital Signs Vital Sign Reading Time Taken Comments Blood Pressure 116/82 12/04/2022 7:57 AM EDT Pulse 68 12/04/2022 7:57 AM EDT Temperature 36.7 ??C (98.1 ??F) 11/27/2022 1 1:45 AM EDT Respiratory Rate 17 11/27/2022 11:4 5 AM EDT Oxygen Saturation 98% 11/27/2022 11: 45 AM EDT Inhaled Oxygen Concentration - - Weight 78.8 kg (173 lb 12.8 oz) 11/27/2022 5:55 AM EDT Height 168.5 cm (5' 6.34 ) 11/27/2022 5:55 AM ED T Body Mass Index 27.77 11/27/2022 5:55 AM EDT Plan of Treatment Not on file Medical Devices Implanted Type Area 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 Supervisor Device Identifier Shelf Expiration Date Model / Serial / Lot Stent Ureteral Firm Hydro[employer] Coating 6fr 26cm Percuflex Plus - [id number] Implanted:Qty: 1 on 11/27/2022 by Manoj Bell MD at [facility] Stent Right: Ureter [employer] 07/17/2025 [id number] / / [id number] Insurance [facility] C[facility] Advance Directives * Presumed Full Code (Latest Code Status on File) Date Activated Date Inactivated Comments 11/27/2022 5:27 AM 11/27/2022 2:04 PM Care Teams Credit Portfolio Manager Relationship Specialty Start Date End Date Dhaval Woods [address] [place] [address] PCP - General 10/09/16
== END 2024-09-05 14:46 | disposition home or self-care (01) ==
LOC: HO.HHCL 14:45
PROVIDERS: Visit Provider Nurse Practitioner Primary Care
DX: R04.0 Epistaxis (principal)
CPT/HCPCS: 36415; 85025; 85610